=== PATIENT | male | born 1965 | race Two or more races ===

== ENCOUNTER 2020-06-30 21:57 | Emergency (ER) | payer OTHER ==
[~2020-06-30] VITALS: Ht 167.6 cm; Wt 90.7 kg
--- NOTE | 2020-06-30 22:05 | NUR ---
BIBRA FROM HOME C/O NAUSEA S/P EATING MARIJUANA EDIBLE FOR THE FIRST TIME EARLIER TODAY. PT ALSO ADMITS TO DRINKING ALCOHOL. DENIES SI/HI. PT AAOX4, APPEARS UNCOMFORTABLE AND RESTLESS. PT PLACED ON MONITOR, WILL CONTINUE TO MONITOR. PENDING MD KAUFMAN
[2020-06-30] MEDS ORDERED: HALOPERIDOL LACTATE INJ 5 MG/ML VIAL ONE (22:49)
[2020-06-30] MEDS ORDERED: ONDANSETRON HCL/PF 4 MG/2 ML VIAL ONE (22:49)
[2020-06-30] MEDS ORDERED: ONDANSETRON HCL/PF 4 MG/2 ML VIAL IVP ONE (23:00)
[2020-06-30] MEDS ORDERED: IV NS 0.9% 1,000 ML BAG IV ONE (23:00)
[2020-06-30] MEDS ORDERED: HALOPERIDOL LACTATE INJ 5 MG/ML VIAL IM ONE (23:00)
--- NOTE | 2020-06-30 23:08 | NUR ---
PT UNABLE TO PROVIDE URINE SAMPLE AT THIS TIME. MD DREW
[2020-06-30 23:10] LABS: BASOPHILS # (AUTO) 0.1 /CMM (0.0-0.2); BASOPHILS % (AUTO) 0.6 % (0.0-2.0); EOSINOPHILS % (AUTO) 2.8 % (0.0-6.0); HEMATOCRIT 44 % (39-51); HEMOGLOBIN 14.5 g/dL (13.5-17.5); LYMPHOCYTES # (AUTO) 2.4 /CMM (0.8-4.8); LYMPHOCYTES % (AUTO) 18.6 % (20.0-44.0); MEAN CORPUSCULAR HGB CONC 33 g/dl (31.0-36.0); MEAN CORPUSCULAR VOLUME 87 fL (80-96); MONOCYTES # (AUTO) 0.5 /CMM (0.1-1.30); MONOCYTES % (AUTO) 3.6 % (2.0-12.0); NEUTROPHILS # (AUTO) 9.7 /CMM (1.8-8.9); NEUTROPHILS % (AUTO) 74.4 % (43.0-81.0); PLATELET COUNT (AUTO) 175 /CMM (150-450); RED BLOOD CELL COUNT(AUTO) 5.04 MIL/uL (4.5-6.0); WHITE BLOOD COUNT (AUTO) 13.1 K/uL (4.3-11.0)
[2020-06-30 23:21] LABS: CALCIUM, SERUM 9.7 mg/dL (8.5-10.1); CREATININE 1.3 mg/dL (0.6-1.3); POTASSIUM 4.2 mmol/L (3.5-5.1)
[2020-06-30 23:26] LABS: ALBUMIN 4.4 g/dL (3.4-5.0); BILIRUBIN,DIRECT 0.2 mg/dL (0.0-0.2); BILIRUBIN,TOTAL 0.6 mg/dL (0.2-1.0); TOTAL PROTEIN, SERUM 8.3 g/dL (6.4-8.2)
--- NOTE | 2020-06-30 23:47 | NUR ---
PT STATES HE IS FEELING MUCH BETTER. VITAL SIGNS STABLE. RESTING COMFORTABLY IN BED. STILL UNABLE TO PROVIDE URINE SAMPLE AT THIS TIME. MD DREW
[2020-07-01] MEDS ORDERED: ONDA4TAB5 PO (00:53)
[2020-07-01 01:16] VITALS: BP 128/76
--- NOTE | 2020-07-01 01:16 | NUR ---
Patient discharged to home in stable condition. Written and verbal after care instructions given. Patient verbalizes understanding of instruction.IV removed. Catheter intact and site benign. Pressure and 4x4 applied to site. No bleeding noted.Pt ambulatory with a steady gait. Instructed not to drive, picked up by friend
== END 2020-07-01 01:17 | disposition home or self-care (01) ==
LOC: ER 22:00
DX: R11.2 Nausea with vomiting, unspecified (principal); F19.10 Other psychoactive substance abuse, uncomplicated; I10 Essential (primary) hypertension; F10.10 Alcohol abuse, uncomplicated; E66.01 Morbid (severe) obesity due to excess calories; Y90.0 Blood alcohol level of less than 20 mg/100 ml; Z68.32 Body mass index [BMI] 32.0-32.9, adult; Z95.0 Presence of cardiac pacemaker; Z88.8 Allergy status to other drugs, medicaments and biological substances
CPT/HCPCS: 36415; 71045; 80048; 80076; 80320; 85025; 93005; 96361; 96372; 96374; 99285; J1630; J2405; J7030; G0480

== ENCOUNTER 2020-07-05 10:34 | Emergency (ER) | payer OTHER ==
[~2020-07-05] VITALS: Ht 170.2 cm; Wt 93.0 kg
[~2020-07-05 10:34] MED LIST: ONDA4TAB5 PO
--- NOTE | 2020-07-05 10:50 | NUR ---
SENT BY [facility]RGENT [facility]ARE FOR CONGESTION, NOSE PAIN AND SWELLING X 4 DAYS. PATIENT ON ANTIBIOTIC. PATIENT A/OX4, BREATHING EVEN AND UNLABORED, NO SOB NOTED.
--- NOTE | 2020-07-05 11:00 | NUR ---
SEEN AND EVALUATED BY DR. BURNHAM.
[2020-07-05] MEDS: CLINDAMYCIN 900 MG in IV D5W 50 ML IV ONE (11:10)
[2020-07-05] MEDS ORDERED: MUPI22OI2 TP (11:28)
[2020-07-05] MEDS ORDERED: CEPH500C2 PO (11:28)
[2020-07-05 11:57] VITALS: BP 156/100
--- NOTE | 2020-07-05 11:57 | NUR ---
IV removed. Catheter intact and site benign. Pressure and 4x4 applied to site. No bleeding noted.Patient discharged to home in stable condition. Written and verbal after care instructions given. Patient verbalizes understanding of instruction.
== END 2020-07-05 11:59 | disposition home or self-care (01) ==
LOC: ER 10:51
DX: J34.0 Abscess, furuncle and carbuncle of nose (principal); I10 Essential (primary) hypertension; Z95.0 Presence of cardiac pacemaker; Z88.8 Allergy status to other drugs, medicaments and biological substances; Z91.013 Allergy to seafood; Z79.899 Other long term (current) drug therapy
CPT/HCPCS: 96365; 99284; J3490; J7060

== ENCOUNTER 2020-07-06 14:24 | Emergency (ER) | payer OTHER ==
[~2020-07-06] VITALS: Ht 170.2 cm; Wt 88.5 kg
[~2020-07-06 14:24] MED LIST changes: +CEPH500C2 PO; +MUPI22OI2 TP
[2020-07-06 14:30] VITALS: BP 140/83
--- NOTE | 2020-07-06 14:48 | NUR ---
CALLED PHARMACY FOR IV ANTIBIOTIC
[2020-07-06] MEDS ORDERED: CLINDAMYCIN 900 MG in IV D5W 100 ML IV ONE (15:00)
--- NOTE | 2020-07-06 15:33 | NUR ---
Patient discharged to home in stable condition. Written and verbal after care instructions given. Patient verbalizes understanding of instruction.IV removed. Catheter intact and site benign. Pressure and 4x4 applied to site. No bleeding noted.
== END 2020-07-06 15:35 | disposition home or self-care (01) ==
LOC: ER 14:29
DX: J34.0 Abscess, furuncle and carbuncle of nose (principal); I10 Essential (primary) hypertension; Z95.0 Presence of cardiac pacemaker; Z88.8 Allergy status to other drugs, medicaments and biological substances; Z91.013 Allergy to seafood; Z79.899 Other long term (current) drug therapy
CPT/HCPCS: 96365; 96366; 99284; J3490; J7060